=== PATIENT | female | born 1975 | race Caucasian/White ===

== ENCOUNTER 2016-04-20 10:06 | Emergency (ER) | payer OTHER ==
[~2016-04-20] VITALS: Ht 167.6 cm; Wt 64.1 kg
[~2016-04-20 10:06] MED LIST: AMOXICILLIN 8751 TAB PO; AUGMENTIN 250 M1 TAB; BACTRIM DS 8001 TAB PO; BENTYL 20MG20 MG/TAB PO; CEPHALEXIN500 M1 PO; CIPRO 500MG TA500 MG PO; CLARITIN 1010 MG/TAB PO; DESYREL 100MG100 MG PO; DESYREL 50MG50 MG PO; DESYREL DIVIDO150 M1 PO; EFFEXOR 3737.5 MG/TA PO; FLAGYL500 MG PO; FLEXERIL 1010 MG/TAB PO; K-DUR 10 MEQ T10 MEQ; LEVOXYL0.025 MG PO; LORTAB 5/500 501 TAB PO; MEDROL 4MG DOSPA4 MG PO; MIRALAX238G PO; MOTRIN 800800 MG/TAB PO; NO HOME MEDICATIONS; NORCO 325 MG-51 TAB PO; PERCOCET 325 MG1 TA2 PO; PHENERGAN 25 TA25 MG PO; PHENERGAN W/CO120 ML PO; PREDNISONE20 MG PO; PRILOSEC 20MG20 MG PO; PRISTIQ 50 MG T50 MG PO; SEPTRA DS 8001 TAB PO; ULTRAM 50MG TAB50 MG PO; VENTOLIN0.09 MG IH; VIIBRYD40 MG PO; VOLTAREN 50MG T50 MG PO; ZOFRAN 4MG T4 MG/TAB PO; ZOFRAN8 MG PO; ZOLOFT 50MG50 MG PO; [UNRECOGNIZED DRUG - OTHER]
[2016-04-20 10:08] VITALS: BP 129/59; PULSE 76; TEMP 98.4
[2016-04-20] MEDS ORDERED: NORCO 325 MG-51 TAB PO (10:21)
[2016-04-20] MEDS ORDERED: PEN-VEE K500 MG PO (10:21)
== END 2016-04-20 10:56 | disposition home or self-care (01) ==
LOC: COL.ER 10:06
DX: K08.89 Other specified disorders of teeth and supporting structures (principal)

== ENCOUNTER 2016-04-24 14:20 | Emergency (ER) | payer OTHER ==
[~2016-04-24] VITALS: Ht 167.6 cm; Wt 64.1 kg
[~2016-04-24 14:20] MED LIST changes: +PEN-VEE K500 MG PO
[2016-04-24 15:03] VITALS: BP 134/63; PULSE 73; TEMP 98.6
== END 2016-04-24 15:07 | disposition home or self-care (01) ==
LOC: COL.ER 14:20
DX: S63.601A Unspecified sprain of right thumb, initial encounter (principal); W19.XXXA Unspecified fall, initial encounter

== ENCOUNTER 2016-05-06 22:13 | Emergency (ER) | payer OTHER ==
[~2016-05-06] VITALS: Ht 167.6 cm; Wt 64.1 kg
[2016-05-06 22:18] VITALS: BP 106/74; PULSE 77; TEMP 98.4
[2016-05-06] MEDS ORDERED: CLEOCIN HCL300 MG PO (23:31)
== END 2016-05-06 23:46 | disposition home or self-care (01) ==
LOC: COL.ER 22:13
DX: R68.84 Jaw pain (principal); K08.89 Other specified disorders of teeth and supporting structures; K03.81 Cracked tooth

== ENCOUNTER 2016-07-06 23:48 | Emergency (ER) | payer OTHER ==
[~2016-07-06] VITALS: Ht 170.2 cm; Wt 66.4 kg
[~2016-07-06 23:48] MED LIST changes: +CLEOCIN HCL300 MG PO
[2016-07-06 23:51] VITALS: BP 110/58; PULSE 68; TEMP 97.9
[2016-07-07] MEDS ORDERED: ULTRAM 50MG TAB50 MG PO (00:15)
== END 2016-07-07 00:34 | disposition home or self-care (01) ==
LOC: COL.ER 23:48
DX: S63.502A Unspecified sprain of left wrist, initial encounter (principal); X50.3XXA Overexertion from repetitive movements, initial encounter; Y92.89 Other specified places as the place of occurrence of the external cause
CPT/HCPCS: J1885

== ENCOUNTER 2016-09-07 06:24 | Emergency (ER) | payer OTHER ==
[~2016-09-07] VITALS: Ht 170.2 cm; Wt 66.8 kg
[2016-09-07 06:27] VITALS: BP 141/85; TEMP 98.5
[2016-09-07] MEDS ORDERED: ATARAX 25MG25 MG/TAB PO (07:09)
[2016-09-07 07:38] VITALS: PULSE 86
== END 2016-09-07 07:50 | disposition home or self-care (01) ==
LOC: COL.ER 06:24
DX: S00.86XA Insect bite (nonvenomous) of other part of head, initial encounter (principal); S40.862A Insect bite (nonvenomous) of left upper arm, initial encounter; S40.861A Insect bite (nonvenomous) of right upper arm, initial encounter; W57.XXXA Bitten or stung by nonvenomous insect and other nonvenomous arthropods, initial encounter; Z86.14 Personal history of Methicillin resistant Staphylococcus aureus infection
CPT/HCPCS: J8540

== ENCOUNTER 2016-09-14 21:51 | Emergency (ER) | payer OTHER ==
[~2016-09-14] VITALS: Ht 170.2 cm; Wt 65.0 kg
[~2016-09-14 21:51] MED LIST changes: +ATARAX 25MG25 MG/TAB PO
[2016-09-14 21:55] VITALS: BP 124/68; TEMP 98.2
[2016-09-14 22:34] VITALS: PULSE 78
== END 2016-09-14 22:36 | disposition home or self-care (01) ==
LOC: COL.ER 21:51
DX: S90.32XA Contusion of left foot, initial encounter (principal); W22.8XXA Striking against or struck by other objects, initial encounter; Y92.009 Unspecified place in unspecified non-institutional (private) residence as the place of occurrence of the external cause

== ENCOUNTER 2016-09-25 00:02 | Emergency (ER) | payer OTHER ==
[~2016-09-25] VITALS: Ht 170.2 cm; Wt 70.5 kg
[2016-09-25 00:04] VITALS: TEMP 97.9
[2016-09-25] MEDS ORDERED: NAPROSYN500 MG PO (00:08)
[2016-09-25 00:54] VITALS: BP 115/56; PULSE 79
== END 2016-09-25 00:57 | disposition home or self-care (01) ==
LOC: COL.ER 00:02
DX: S90.121A Contusion of right lesser toe(s) without damage to nail, initial encounter (principal); W22.8XXA Striking against or struck by other objects, initial encounter

== ENCOUNTER 2017-02-17 00:25 | Emergency (ER) | payer OTHER ==
[~2017-02-17] VITALS: Ht 167.6 cm; Wt 70.5 kg
[~2017-02-17 00:25] MED LIST changes: +NAPROSYN500 MG PO
[2017-02-17 00:28] VITALS: BP 112/68; PULSE 78; TEMP 98.3
[2017-02-17] MEDS ORDERED: CRUTCHES MC (01:12)
== END 2017-02-17 01:36 | disposition home or self-care (01) ==
LOC: COL.ER 00:25
DX: S93.402A Sprain of unspecified ligament of left ankle, initial encounter (principal); X50.1XXA Overexertion from prolonged static or awkward postures, initial encounter; Y92.009 Unspecified place in unspecified non-institutional (private) residence as the place of occurrence of the external cause

== ENCOUNTER 2017-03-05 19:49 | Emergency (ER) | payer SELFPAY ==
[~2017-03-05] VITALS: Ht 167.6 cm; Wt 70.9 kg
[~2017-03-05 19:49] MED LIST changes: +CRUTCHES MC
[2017-03-05 20:02] VITALS: BP 108/75; TEMP 97.5
[2017-03-05] MEDS ORDERED: [UNRECOGNIZED DRUG - CODE] (20:05)
[2017-03-05] MEDS ORDERED: TESSALON P100 MG/CAP PO (20:39)
[2017-03-05] MEDS ORDERED: ZITHROMAX 250M250 MG PO (20:39)
[2017-03-05 20:58] VITALS: PULSE 98
== END 2017-03-05 21:02 | disposition home or self-care (01) ==
LOC: COL.ER 19:49
DX: J20.9 Acute bronchitis, unspecified (principal); Z98.51 Tubal ligation status; Z98.890 Other specified postprocedural states

== ENCOUNTER 2017-03-08 11:30 | Emergency (ER) | payer OTHER ==
[~2017-03-08] VITALS: Ht 167.6 cm; Wt 70.9 kg
[~2017-03-08 11:30] MED LIST changes: +TESSALON P100 MG/CAP PO; +ZITHROMAX 250M250 MG PO; +[UNRECOGNIZED DRUG - CODE]
[2017-03-08 11:59] VITALS: BP 118/57; TEMP 98.6
[2017-03-08 13:42] LABS: COLLECTION METHOD CLEAN CATCH
[2017-03-08 13:48] LABS: BASO # 0.1 (0.0-0.2); BASO % 0.3 % (0.0-2.0); EOS # 0.1 (0.0-0.7); EOS % 0.7 % (0-4.0); GRAN # 12.6 (1.4-6.5); GRAN % 77.2 % (42.2-75.2); HEMATOCRIT 44.4 % (37.0-47.0); HEMOGLOBIN 14.7 g/dl (12.5-16.0); LYMPH # 2.2 (1.2-3.4); LYMPH % 13.3 % (20.0-51.0); MEAN CELL VOLUME 94 fl (80.0-100.0); MEAN CORPUSCULAR HEMOGLOBIN 31 pg (27.0-31.0); MEAN CORPUSCULAR HGB CONC 33 g/dl (33.0-37.0); MEAN PLATELET VOLUME 10.1 fl (7.4-10.4); MONO # 1.2 (0.1-0.6); MONO % 7.5 % (1.7-9.3); PLATELET COUNT 359 K/mm3 (130-400); RED BLOOD COUNT 4.72 M/mm3 (4.10-5.30); WHITE BLOOD COUNT 16.4 K/mm3 (4.8-10.8)
[2017-03-08 13:57] LABS: ADJUSTED CALCIUM 8.9 mg/dL (8.4-10.2); ALBUMIN 3.8 gm/dL (3.5-5.0); BILIRUBIN,TOTAL 0.6 mg/dL (0.0-1.0); CALCIUM 8.7 mg/dL (8.4-10.2); CREATININE, serum 0.6 mg/dL (0.52-1.25); TOTAL PROTEIN 6.8 gm/dL (6.4-8.2)
[2017-03-08 14:08] LABS: MUCOUS Present /lpf; PH 5 (5-8); URINE APPEARANCE Hazy; URINE BACTERIA None Seen /hpf; URINE BILIRUBIN Negative (NEGATIVE); URINE BLOOD Negative (NEGATIVE); URINE CALCIUM OXALATE CRYSTAL Present /hpf; URINE COLOR Yellow; URINE GLUCOSE Negative (NEGATIVE); URINE KETONE Negative (NEGATIVE); URINE LEUKOCYTE ESTERASE Negative (NEGATIVE); URINE PROTEIN(semi-quant) Negative (NEGATIVE); URINE RBC None Seen /hpf; URINE UROBILINOGEN Negative (NEGATIVE)
[2017-03-08] MEDS ORDERED: ZOFRAN ODT4 MG PO (15:46)
[2017-03-08 15:56] VITALS: PULSE 96
== END 2017-03-08 15:57 | disposition home or self-care (01) ==
LOC: COL.ER 11:30
PROVIDERS: Nurse Practitioner Primary Care
DX: K52.9 Noninfective gastroenteritis and colitis, unspecified (principal); F43.10 Post-traumatic stress disorder, unspecified; Z98.51 Tubal ligation status
CPT/HCPCS: J1170; J2405; J7030

== ENCOUNTER 2017-03-27 23:49 | Emergency (ER) | payer OTHER ==
[~2017-03-27] VITALS: Ht 167.6 cm; Wt 66.9 kg
[~2017-03-27 23:49] MED LIST changes: +ZOFRAN ODT4 MG PO
[2017-03-27 23:57] VITALS: BP 103/55; TEMP 98.2
[2017-03-28 00:27] LABS: BASO # 0.1 (0.0-0.2); BASO % 0.6 % (0.0-2.0); EOS # 0.2 (0.0-0.7); EOS % 2.3 % (0-4.0); GRAN # 3.8 (1.4-6.5); GRAN % 47.1 % (42.2-75.2); HEMATOCRIT 41.2 % (37.0-47.0); HEMOGLOBIN 13.8 g/dl (12.5-16.0); LYMPH % 37.4 % (20.0-51.0); MEAN CELL VOLUME 94 fl (80.0-100.0); MEAN CORPUSCULAR HEMOGLOBIN 32 pg (27.0-31.0); MEAN CORPUSCULAR HGB CONC 34 g/dl (33.0-37.0); MONO % 12.2 % (1.7-9.3); PLATELET COUNT 356 K/mm3 (130-400); RED BLOOD COUNT 4.37 M/mm3 (4.10-5.30)
[2017-03-28 00:40] LABS: ANION GAP 8 mmol/L (7-16); BLOOD UREA NITROGEN 14 mg/dL (7-17); CALCIUM 9.5 mg/dL (8.4-10.2); CARBON DIOXIDE 26 mmol/L (22-30); CHLORIDE 104 mmol/L (98-107); CREATININE, serum 0.65 mg/dL (0.52-1.25); GLUCOSE 90 mg/dL (74-106); SODIUM 138 mmol/L (137-145)
[2017-03-28 00:41] LABS: ALANINE AMINOTRANSFERASE 23 U/L (9-52); ALBUMIN 4.1 gm/dL (3.5-5.0); ALKALINE PHOSPHATASE 72 U/L (50-136); AST,SGOT 19 U/L (15-37); BILIRUBIN,TOTAL 0.4 mg/dL (0.0-1.0); C-REACTIVE PROTEIN 0.7 mg/dL (0.0-0.9); TOTAL PROTEIN 6.8 gm/dL (6.4-8.2)
[2017-03-28 00:48] LABS: TROPONIN-I < 0.012 ng/mL (0.000-0.034)
[2017-03-28] MEDS ORDERED: VOLTAREN 75 DR75 MG PO (01:04)
[2017-03-28 01:06] VITALS: PULSE 58
== END 2017-03-28 01:07 | disposition home or self-care (01) ==
LOC: COL.ER 23:49
PROVIDERS: Family Medicine
DX: M94.0 Chondrocostal junction syndrome [Tietze] (principal); R07.89 Other chest pain
CPT/HCPCS: J1885

== ENCOUNTER 2017-05-01 23:10 | Emergency (ER) | payer SELFPAY ==
[~2017-05-01] VITALS: Ht 167.6 cm; Wt 70.9 kg
[~2017-05-01 23:10] MED LIST changes: +VOLTAREN 75 DR75 MG PO
[2017-05-01 23:16] VITALS: BP 129/75; PULSE 93; TEMP 98.1
== END 2017-05-02 01:05 | disposition home or self-care (01) ==
LOC: COL.ER 23:10
DX: B86 Scabies (principal)

== ENCOUNTER 2017-05-22 18:57 | Emergency (ER) | payer SELFPAY ==
[~2017-05-22] VITALS: Ht 167.6 cm; Wt 70.5 kg
[2017-05-22 19:10] VITALS: TEMP 97.6
[2017-05-22 19:45] LABS: COLLECTION METHOD CLEAN CATCH
[2017-05-22 19:51] LABS: BASO % 0.3 % (0.0-2.0); EOS # 0.3 (0.0-0.7); EOS % 2.5 % (0-4.0); GRAN # 7.7 (1.4-6.5); GRAN % 65.6 % (42.2-75.2); HEMOGLOBIN 14.6 g/dl (12.5-16.0); LYMPH # 2.5 (1.2-3.4); LYMPH % 21.5 % (20.0-51.0); MEAN CELL VOLUME 93 fl (80.0-100.0); MEAN CORPUSCULAR HEMOGLOBIN 32 pg (27.0-31.0); MEAN CORPUSCULAR HGB CONC 34 g/dl (33.0-37.0); MEAN PLATELET VOLUME 10.5 fl (7.4-10.4); MONO # 1.1 (0.1-0.6); MONO % 9.6 % (1.7-9.3); PLATELET COUNT 359 K/mm3 (130-400); RED BLOOD COUNT 4.64 M/mm3 (4.10-5.30); REDCELL DISTRIBUTION WIDTH-CV 12.7 % (11.5-14.5)
[2017-05-22 19:53] LABS: MUCOUS Present /lpf; PH 5 (5-8); SQUAMOUS EPITHELIAL 0-2 /hpf; URINE APPEARANCE Clear; URINE BACTERIA None Seen /hpf; URINE BILIRUBIN Negative (NEGATIVE); URINE BLOOD Negative (NEGATIVE); URINE COLOR Yellow; URINE GLUCOSE Negative (NEGATIVE); URINE KETONE Negative (NEGATIVE); URINE LEUKOCYTE ESTERASE Negative (NEGATIVE); URINE NITRATE Negative (NEGATIVE); URINE PROTEIN(semi-quant) Negative (NEGATIVE); URINE RBC 0-2 /hpf; URINE UROBILINOGEN Negative (NEGATIVE)
[2017-05-22 20:02] LABS: ALBUMIN 3.7 gm/dL (3.5-5.0); BILIRUBIN,TOTAL 0.1 mg/dL (0.0-1.0); C-REACTIVE PROTEIN 1.2 mg/dL (0.0-0.9); CALCIUM 8.5 mg/dL (8.4-10.2); CREATININE, serum 0.64 mg/dL (0.52-1.25); POTASSIUM 3.9 mmol/L (3.4-5.0); TOTAL PROTEIN 6.5 gm/dL (6.4-8.2)
[2017-05-22] MEDS ORDERED: ZOFRAN ODT4 MG PO (22:06)
[2017-05-22] MEDS ORDERED: REGLAN 10MG10 MG/TAB PO (22:19)
[2017-05-22] MEDS ORDERED: STOOL SOFTENER100 M2 PO (22:19)
[2017-05-22 22:30] VITALS: BP 107/66; PULSE 80
== END 2017-05-22 22:43 | disposition home or self-care (01) ==
LOC: COL.ER 18:57
PROVIDERS: Emergency Medicine
DX: K59.00 Constipation, unspecified (principal); K58.9 Irritable bowel syndrome, unspecified
CPT/HCPCS: J1885; J2405; J7030

== ENCOUNTER 2017-07-05 13:52 | Emergency (ER) | payer SELFPAY ==
[~2017-07-05] VITALS: Ht 167.6 cm; Wt 68.3 kg
[~2017-07-05 13:52] MED LIST changes: +REGLAN 10MG10 MG/TAB PO; +STOOL SOFTENER100 M2 PO
[2017-07-05 13:55] VITALS: BP 116/61; TEMP 98.4
[2017-07-05 14:25] LABS: BASO % 0.4 % (0.0-2.0); EOS # 0.1 (0.0-0.7); EOS % 1.2 % (0-4.0); GRAN # 5.5 (1.4-6.5); GRAN % 60.5 % (42.2-75.2); HEMATOCRIT 38.2 % (37.0-47.0); HEMOGLOBIN 12.8 g/dl (12.5-16.0); LYMPH # 2.4 (1.2-3.4); LYMPH % 26.5 % (20.0-51.0); MEAN CELL VOLUME 91 fl (80.0-100.0); MEAN CORPUSCULAR HEMOGLOBIN 31 pg (27.0-31.0); MEAN CORPUSCULAR HGB CONC 34 g/dl (33.0-37.0); MEAN PLATELET VOLUME 10.5 fl (7.4-10.4); PLATELET COUNT 302 K/mm3 (130-400); RED BLOOD COUNT 4.18 M/mm3 (4.10-5.30)
[2017-07-05 14:44] LABS: ERYTHROCYTE SEDIMENTATION RATE 1 mm/hr (0-20)
[2017-07-05 14:46] LABS: ALANINE AMINOTRANSFERASE 28 U/L (9-52); ALBUMIN 3.2 gm/dL (3.5-5.0); ALKALINE PHOSPHATASE 56 U/L (50-136); ANION GAP 11 mmol/L (7-16); AST,SGOT 14 U/L (15-37); BILIRUBIN,TOTAL 0.1 mg/dL (0.0-1.0); BLOOD UREA NITROGEN 9 mg/dL (7-17); CALCIUM 8.2 mg/dL (8.4-10.2); CARBON DIOXIDE 23 mmol/L (22-30); CHLORIDE 106 mmol/L (98-107); GLUCOSE 86 mg/dL (74-106); POTASSIUM 3.3 mmol/L (3.4-5.0); SODIUM 140 mmol/L (137-145); URIC ACID 4.4 mg/dL (2.5-6.2)
[2017-07-05 14:47] LABS: C-REACTIVE PROTEIN < 0.5 mg/dL (0.0-0.9)
[2017-07-05] MEDS ORDERED: MEDROL 4MG DOSPA4 MG PO (15:35)
[2017-07-05 15:51] VITALS: PULSE 80
[2017-07-06] MEDS ORDERED: K-TAB20 PO (20:02)
[2017-07-06] MEDS ORDERED: CEFTIN500 MG PO (20:02)
== END 2017-07-05 15:52 | disposition home or self-care (01) ==
LOC: COL.ER 13:52
PROVIDERS: Emergency Medicine
DX: M25.542 Pain in joints of left hand (principal); M25.541 Pain in joints of right hand; M25.572 Pain in left ankle and joints of left foot; M25.571 Pain in right ankle and joints of right foot
CPT/HCPCS: J7512

== ENCOUNTER 2017-07-06 17:58 | Emergency (ER) | payer SELFPAY ==
[~2017-07-06] VITALS: Ht 167.6 cm; Wt 52.3 kg
[2017-07-06 18:05] VITALS: BP 129/67; TEMP 98.1
[2017-07-06 18:32] LABS: COLLECTION METHOD CLEAN CATCH
[2017-07-06 18:42] LABS: MUCOUS Present /lpf; PH 5 (5-8); SQUAMOUS EPITHELIAL 20-50 /hpf; URINE APPEARANCE Cloudy; URINE BACTERIA Rare /hpf; URINE BILIRUBIN Negative (NEGATIVE); URINE BLOOD Negative (NEGATIVE); URINE COLOR Yellow; URINE GLUCOSE Negative (NEGATIVE); URINE KETONE Negative (NEGATIVE); URINE LEUKOCYTE ESTERASE 1+ (NEGATIVE); URINE NITRATE Negative (NEGATIVE); URINE PROTEIN(semi-quant) Negative (NEGATIVE); URINE UROBILINOGEN Negative (NEGATIVE)
[2017-07-06 19:08] LABS: BASO # 0.1 (0.0-0.2); BASO % 0.3 % (0.0-2.0); EOS # 0.1 (0.0-0.7); EOS % 0.4 % (0-4.0); GRAN % 64.8 % (42.2-75.2); HEMATOCRIT 41.5 % (37.0-47.0); HEMOGLOBIN 14.2 g/dl (12.5-16.0); LYMPH % 26.1 % (20.0-51.0); MEAN CELL VOLUME 91 fl (80.0-100.0); MEAN CORPUSCULAR HEMOGLOBIN 31 pg (27.0-31.0); MEAN CORPUSCULAR HGB CONC 34 g/dl (33.0-37.0); MEAN PLATELET VOLUME 10.6 fl (7.4-10.4); MONO # 1.2 (0.1-0.6); MONO % 7.8 % (1.7-9.3); PLATELET COUNT 313 K/mm3 (130-400); RED BLOOD COUNT 4.57 M/mm3 (4.10-5.30); REDCELL DISTRIBUTION WIDTH-CV 12.9 % (11.5-14.5)
[2017-07-06 19:18] LABS: CALCIUM 8.9 mg/dL (8.4-10.2); CREATININE, serum 0.64 mg/dL (0.52-1.25)
[2017-07-06] MEDS ORDERED: K-TAB20 PO (20:02)
[2017-07-06] MEDS ORDERED: CEFTIN500 MG PO (20:02)
[2017-07-06 20:20] VITALS: PULSE 69
== END 2017-07-06 20:21 | disposition home or self-care (01) ==
LOC: COL.ER 17:58
PROVIDERS: Physician Assistant
DX: E87.6 Hypokalemia (principal); R10.9 Unspecified abdominal pain; Z98.51 Tubal ligation status; Z87.442 Personal history of urinary calculi; Z79.52 Long term (current) use of systemic steroids

== ENCOUNTER 2017-07-22 00:18 | Emergency (ER) | payer SELFPAY ==
[~2017-07-22] VITALS: Ht 167.6 cm; Wt 68.6 kg
[~2017-07-22 00:18] MED LIST changes: +CEFTIN500 MG PO; +K-TAB20 PO
[2017-07-22 00:22] VITALS: BP 118/57; PULSE 87; TEMP 98.3
== END 2017-07-22 01:04 | disposition left against medical advice (07) ==
LOC: COL.ER 00:18
DX: M79.605 Pain in left leg (principal); R20.2 Paresthesia of skin; Z79.52 Long term (current) use of systemic steroids

== ENCOUNTER 2017-08-07 19:14 | Emergency (ER) | payer SELFPAY ==
[~2017-08-07] VITALS: Ht 167.6 cm; Wt 67.7 kg
[2017-08-07 19:17] VITALS: BP 131/58; TEMP 97.6
[2017-08-07 20:03] VITALS: PULSE 70
== END 2017-08-07 20:03 | disposition home or self-care (01) ==
LOC: COL.ER 19:14
DX: M25.561 Pain in right knee (principal); Z98.51 Tubal ligation status; K58.9 Irritable bowel syndrome, unspecified
CPT/HCPCS: L1846

== ENCOUNTER → 2017-08-22 | Outpatient (CLI) | payer SELFPAY | LOC: COL.RAD 23:30 | DX: M25.561 Pain in right knee (principal) ==

== ENCOUNTER 2018-01-23 19:44 | Emergency (ER) | payer SELFPAY ==
[~2018-01-23] VITALS: Ht 167.6 cm; Wt 56.8 kg
[2018-01-23 19:52] VITALS: BP 113/56; TEMP 102.6
[2018-01-23] MEDS ORDERED: AMOXICILLIN 50500 MG PO (21:24)
[2018-01-23 21:58] VITALS: PULSE 95
== END 2018-01-23 22:55 | disposition home or self-care (01) ==
LOC: COL.ER 19:44
DX: J02.0 Streptococcal pharyngitis (principal); F32.9 Major depressive disorder, single episode, unspecified; F41.9 Anxiety disorder, unspecified; F43.10 Post-traumatic stress disorder, unspecified; K21.9 Gastro-esophageal reflux disease without esophagitis

== ENCOUNTER 2018-04-01 20:33 | Emergency (ER) | payer SELFPAY ==
[~2018-04-01] VITALS: Ht 167.6 cm; Wt 52.3 kg
[~2018-04-01 20:33] MED LIST changes: +AMOXICILLIN 50500 MG PO
[2018-04-01 20:36] VITALS: BP 120/68; TEMP 98.7
[2018-04-01 21:53] VITALS: PULSE 74
== END 2018-04-01 21:53 | disposition home or self-care (01) ==
LOC: COL.ER 20:33
DX: S70.01XA Contusion of right hip, initial encounter (principal); Z98.51 Tubal ligation status; W19.XXXA Unspecified fall, initial encounter; Y92.009 Unspecified place in unspecified non-institutional (private) residence as the place of occurrence of the external cause

== ENCOUNTER 2018-10-20 22:40 | Emergency (ER) | payer SELFPAY ==
[~2018-10-20] VITALS: Ht 170.2 cm; Wt 53.6 kg
[2018-10-20 22:45] VITALS: BP 110/74; TEMP 98.7
[2018-10-21] MEDS ORDERED: BACTROBAN15 GM TOP (00:24)
[2018-10-21 00:36] VITALS: PULSE 84
== END 2018-10-21 00:35 | disposition home or self-care (01) ==
LOC: COL.ER 22:40
DX: R21 Rash and other nonspecific skin eruption (principal); K50.90 Crohn's disease, unspecified, without complications; F17.210 Nicotine dependence, cigarettes, uncomplicated

== ENCOUNTER 2019-02-26 11:39 | Emergency (ER) | payer SELFPAY ==
[~2019-02-26] VITALS: Ht 170.2 cm; Wt 53.6 kg
[~2019-02-26 11:39] MED LIST changes: +BACTROBAN15 GM TOP
[2019-02-26 11:58] VITALS: BP 110/69; TEMP 98.3
[2019-02-26] MEDS ORDERED: CRUTCHES MC (13:34)
[2019-02-26 13:49] VITALS: PULSE 88
== END 2019-02-26 13:46 | disposition home or self-care (01) ==
LOC: COL.ER 11:39
DX: S80.02XA Contusion of left knee, initial encounter (principal); S80.12XA Contusion of left lower leg, initial encounter; F43.10 Post-traumatic stress disorder, unspecified; F32.9 Major depressive disorder, single episode, unspecified; K58.9 Irritable bowel syndrome, unspecified; W01.0XXA Fall on same level from slipping, tripping and stumbling without subsequent striking against object, initial encounter; Y92.009 Unspecified place in unspecified non-institutional (private) residence as the place of occurrence of the external cause
CPT/HCPCS: J1885